=== PATIENT | female | born 1990 | race Two or more races ===

== ENCOUNTER 2024-08-17 13:59 | Emergency (ER) | payer MEDICAID, SELFPAY ==
[2024-08-17 14:16] VITALS: BP 111/79; PULSE 97; RESP 18; TEMP 37.4; O2SAT 96
--- NOTE | 2024-08-17 14:28 | PD.EDWEAK ---
ED Weakness RME/HPI General Chief complaint: Fever Stated complaint: FEVER, WEAKNESS, MUSCLE ACHES, H/A; TYLENOL 2400 Time Seen by Provider: 08/17/24 14:28 Source: patient Arrival date/time: 08/17/24 13:59 Mode of arrival: ambulatory Limitations: no limitations RME / HPI MD Complaint: generalized weakness Related Data Previous Rx's ?Medication ?Instructions ?Recorded nifedipine 20 mg capsule 20 mg PO TID #10 caps 09/18/20 acetaminophen 500 mg capsule 1,000 mg (2 x 500 mg) PO QID PRN 03/20/21 fever or pain #30 caps albuterol sulfate 90 mcg/actuation 2 puff inhalation QID #8.5 grams 03/20/21 aerosol inhaler azithromycin 250 mg tablet See Rx Instructions PO .COMPLEX #6 03/20/21 tabs ondansetron 4 mg disintegrating 4 mg PO Q8H PRN nausea and 07/29/23 tablet vomiting #30 tabs Allergies Allergy/AdvReac Type Severity Reaction Status Date / Time No Known Allergies Allergy Verified 08/17/24 14:03 Review of Systems Constitutional Constitutional: Reports system reviewed and no additional complaints, except as documented Eyes Eyes: Reports system reviewed and no additional complaints, except as documented, Denies dry eyes, Denies exophthalmos and Reports floaters Cardiovascular Cardiovascular: Denies chest pain with activity and Denies claudication ED Exam General Limitations: Present no limitations General appearance: Present alert and in no apparent distress Head Head exam: Present atraumatic Eye Eye exam: Present normal appearance and EOMI ENT ENT exam: Present normal exam, normal oropharynx and mucous membranes moist Neck Neck exam: Present normal inspection, full ROM and trachea midline Chest Chest inspection: Present normal inspection and symmetric chest wall rise Respiratory Respiratory exam: Present normal lung sounds bilaterally Extremities Exam Extremities exam: Present normal inspection and full ROM Back Exam Back exam: Present normal inspection and full ROM Neurological Exam Neurological exam: Present alert and oriented X3 Psychiatric Psychiatric exam: Present normal affect and normal mood Skin Skin exam: Present warm, dry, intact and normal color Course Quality Measures none Orders Category Date Time Status Ketorolac Inj [Toradol Inj] Med 08/17/24 14:34 Once 30 mg IM X1 ONE Vital Signs Vital signs: Vital Signs Temperature 99.4 F 08/17/24 14:16 Pulse Rate 97 08/17/24 14:16 Respiratory Rate 18 06/02/25 14:16 Blood Pressure 111/79 08/17/24 14:16 Pulse Oximetry (%) 96 08/17/24 14:16 Oxygen Delivery Method Room Air 08/17/24 14:16 Pulse ox 96% room air Weakness MDM Narrative MDM Narrative:: Patient requesting a pain shot to help with her body aches and her headache and her. I will give her Toradol 30 mg IM and she will be discharged in no apparent distress to follow-up with primary care physician in 1 week Patient data External records reviewed:: Other (specify) Clinical information provided by:: none Social determinants that could affect healthcare access:: none Patient has the following chronic illnesses:: No chronic disease How is presenting disease/condition affected by chronic disease/condition?: no chronic disease Evaluation data The following diagnostics were reviewed and interpreted by me:: other (specify) Lab and/or radiology exams considered but not ordered:: No labs required Interpretation Summary: No labs required Medications / Prescriptions Medications or Prescriptions considered but not ordered:: N/A Medication administrations:: Medication Administration History Ketorolac Tromethamine (Ketorolac Inj 60 Mg/2 Ml Vial) 30 mg IM X1 ONE Stop: 08/17/24 14:35 Ordered Consultations Consultation(s) initiated? (list below): No Diagnosis Weakness Differential Diagnosis: anemia and hypothyroidism Most likely diagnosis given after review of the tests above:: N/A Admission Indicated Admission indicated?: not indicated Explain why admission is indicated or not indicated:: N/A Admission Request Was there a request for admission?: No Disposition Plan Disposition Plan: Discharge Discharge Attestation Discharge Attestation: The patient and all family members were given an opportunity to ask questions and understood the discharge instructions. Discharge instructions specifically effects, indications for sooner follow up or return to the emergency department, and the expected course of current diagnosis. Patient condition: Stable Discharge Plan Plan Patient Disposition: HOME (Self Care) Discharge Disposition comment: Discharge in no apparent distress Patient condition on transfer: Stable Prescriptions/Referrals Prescriptions/Med Rec: No Action azithromycin 250 mg tablet See Rx Instructions .ROUTE .COMPLEX Qty: 6 0RF Rx Instructions: For 250 mg dose pack: take 500 mg today (day 1), then 250 mg for 4 days (days 2-5) acetaminophen 500 mg capsule 1,000 mg PO QID PRN (Reason: fever or pain) Qty: 30 0RF albuterol sulfate 90 mcg/actuation HFA aerosol inhaler 2 puff inhalation QID Qty: 8.5 0RF nifedipine 20 mg capsule 20 mg PO TID Qty: 10 0RF ondansetron 4 mg tablet,disintegrating 4 mg PO Q8H PRN (Reason: nausea and vomiting) Qty: 30 0RF Problem List Clinical Impression: Acute viral syndrome Patient/Caregiver Discharge Instructions Discharge Activity: activity as tolerated Education Materials: ED Viral Syndrome (Adult) Print Language: Chinese Stand Alone Forms: [facility]ini Award Info., Patient Portal Info Letter PA/WORM FARMER Supervising Physician PA/WORM FARMER Supervising Physician: Can
[2024-08-17] MEDS: KETOROLAC INJ 60 MG/2 ML VIAL 30 MG IM (15:02)
== END 2024-08-17 20:37 | disposition home or self-care (01) ==
LOC: SERX 15:10
PROVIDERS: Emergency Provider Emergency Medicine; PCP Family Medicine
DX: B34.9 Viral infection, unspecified (principal)
CPT/HCPCS: 96372; 99283; J1885